=== PATIENT | male | born 1995 | race African-American/Black ===

== ENCOUNTER 2017-08-31 15:13 | Emergency (ER) | payer MEDICAID, OTHER ==
[~2017-08-31] VITALS: Ht 190.5 cm; Wt 95.3 kg
[~2017-08-31 15:13] MED LIST: ALBU18; PROAIR
[2017-08-31 16:15] VITALS: BP 134/56
== END 2017-08-31 16:53 | disposition home or self-care (01) ==
LOC: ER 15:13
DX: M25.561 Pain in right knee (principal)
CPT/HCPCS: 73562

== ENCOUNTER 2017-09-16 18:34 | Emergency (ER) | payer SELFPAY ==
[~2017-09-16] VITALS: Ht 190.5 cm; Wt 95.3 kg
[2017-09-16 18:43] VITALS: BP 130/88
== END 2017-09-16 20:08 | disposition home or self-care (01) ==
LOC: ER 18:34
DX: S60.031A Contusion of right middle finger without damage to nail, initial encounter (principal); W22.8XXA Striking against or struck by other objects, initial encounter; Y93.89 Activity, other specified; Y99.8 Other external cause status; Y92.89 Other specified places as the place of occurrence of the external cause
CPT/HCPCS: 73130

== ENCOUNTER 2018-08-11 06:10 | Emergency (ER) | payer SELFPAY ==
[~2018-08-11] VITALS: Ht 188 cm; Wt 90.7 kg
[2018-08-11] MEDS ORDERED: IPRATROPIUM BROM 0.5 MG/2.5ML INH SOL NEB ONE (07:00)
[2018-08-11] MEDS ORDERED: IBUPROFEN 800 MG TAB PO ONE (07:00)
[2018-08-11] MEDS ORDERED: ALBUTEROL SULF 2.5 MG/0.5ML(0.5%) NEB SOLN NEB ONE (07:00)
[2018-08-11 07:22] VITALS: BP 104/50
== END 2018-08-11 07:28 | disposition home or self-care (01) ==
LOC: ER 06:10
DX: J02.9 Acute pharyngitis, unspecified (principal); J45.909 Unspecified asthma, uncomplicated
CPT/HCPCS: 94640; 99283; J7611; J7644

== ENCOUNTER 2018-08-20 18:07 | Emergency (ER) | payer MEDICAID ==
[~2018-08-20] VITALS: Ht 188 cm; Wt 90.7 kg
[2018-08-20 18:25] VITALS: BP 118/86
[2018-08-20] MEDS ORDERED: HYDROcodone-ACET 10/325MG TAB PO ONE (20:45)
[2018-08-20] MEDS ORDERED: BACLOFEN 10 MG TAB PO ONE (20:45)
== END 2018-08-20 21:30 | disposition home or self-care (01) ==
LOC: ER 18:16
DX: M25.462 Effusion, left knee (principal); M62.838 Other muscle spasm; M54.2 Cervicalgia; M54.5 Low back pain; Z79.899 Other long term (current) drug therapy; V49.59XA Passenger injured in collision with other motor vehicles in traffic accident, initial encounter; Y93.89 Activity, other specified; Y99.8 Other external cause status; Y92.488 Other paved roadways as the place of occurrence of the external cause
CPT/HCPCS: 29505; 70450; 72040; 73562